=== PATIENT | male | born 1995 | race Caucasian/White ===

== ENCOUNTER 2021-02-18 13:58 | Emergency (ER) | payer BC ==
[~2021-02-18] VITALS: Ht 177.8 cm; Wt 83.9 kg
[2021-02-18 17:30] LABS: INFLUENZA A ANTIGEN Negative (Negative); INFLUENZA B ANTIGEN Negative (Negative)
[2021-02-18 18:56] VITALS: BP 125/64
--- NOTE | 2021-02-19 12:10 | EKG ---
[place] [address] ELECTROCARDIOGRAM REPORT Name: MAL ELIZABETH Room: 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: [facility] : 1995 Requested By: Adrianne Jefferson Order Number: [id number] MD: Ilya Pollard Measurements Intervals [place] Rate: 96 P: 76 TN: 133 QRS: 73 QRSD: 95 T: 6 QT: 346 QTc: 438 Interpretive Statements Sinus rhythm Borderline T wave abnormalities No previous ECG available for comparison Electronically Signed On 02-19-2021 12:09:58 [employer]OUTE [employer]PER[employer] by Ilya Pollard [email or web address] <ELECTRONICALLY SIGNED> By: Ilya Pollard MD, [facility] 02/19/21 1209 1412 141 Ilya Pollard MD, FACC /EPI
== END 2021-02-18 18:56 | disposition home or self-care (01) ==
LOC: M.ERS 13:58
PROVIDERS: Physician Assistant
DX: R13.10 Dysphagia, unspecified (principal); J02.9 Acute pharyngitis, unspecified; R07.89 Other chest pain; J45.909 Unspecified asthma, uncomplicated; Z88.2 Allergy status to sulfonamides